=== PATIENT | male | born 1985 | race Caucasian/White ===

== ENCOUNTER 2018-01-13 07:47 | Emergency (ER) | payer OTHER | END 2018-01-13 10:15 | disposition home or self-care (01) | LOC: M ED 07:47 | DX: J20.8 Acute bronchitis due to other specified organisms (principal); F33.9 Major depressive disorder, recurrent, unspecified; Z79.899 Other long term (current) drug therapy | CPT/HCPCS: 71046 ==

== ENCOUNTER 2018-03-25 11:00 | Day surgery (SDC) | payer OTHER ==
[2018-03-25] MEDS: LR 1,000 ML IV (11:41)
[2018-03-25] MEDS ORDERED: PROPOFOL 200 MG/20 ML VIAL As Ordered ×5 (12:22→14:00)
[2018-03-25] MEDS ORDERED: fentaNYL 100 MCG/2 ML INJECTION (J3010) As Ordered (12:22)
[2018-03-25] MEDS ORDERED: MIDAZOLAM INJ 2 MG/2 ML VIAL (J2250) As Ordered (12:22)
[2018-03-25] MEDS: ceFAZolin 2 GM/D5W 50 ML IV BAG (J0690 PER 500MG) As Ordered (13:26)
[2018-03-25] MEDS: BUPIVACAINE HCL 0.5% 30 ML VIAL As Ordered (13:30)
[2018-03-25] MEDS: LIDOCAINE 1% SDV INJ 30 ML VIAL As Ordered (13:44)
[2018-03-25] MEDS: dexameTHASONE 4 MG/ML 1ML VIAL (J1100) As Ordered (14:00)
== END 2018-03-25 15:40 | disposition home or self-care (01) ==
LOC: M SDC 11:00
DX: M21.611 Bunion of right foot (principal); F32.9 Major depressive disorder, single episode, unspecified; Z79.899 Other long term (current) drug therapy; E66.9 Obesity, unspecified
CPT/HCPCS: 28296

== ENCOUNTER 2018-04-07 13:45 | Emergency (ER) | payer OTHER ==
[2018-04-07] MEDS: LIDOCAINE 1% MDV 20ML VIAL SQ (14:15)
== END 2018-04-07 15:22 | disposition home or self-care (01) ==
LOC: M ED 13:45
DX: S61.215A Laceration without foreign body of left ring finger without damage to nail, initial encounter (principal); W25.XXXA Contact with sharp glass, initial encounter; Y92.098 Other place in other non-institutional residence as the place of occurrence of the external cause; F32.9 Major depressive disorder, single episode, unspecified; Z79.899 Other long term (current) drug therapy
CPT/HCPCS: 73140

== ENCOUNTER 2019-01-27 08:27 | Day surgery (SDC) | payer OTHER ==
[~2019-01-27] VITALS: Ht 180.3 cm; Wt 112.9 kg
[~2019-01-27 08:27] MED LIST: HYDR-3713 PO; LR 1,000 ML IV ONE; MUCI600T37 PO; PAXI30TA11 PO; PAXI40TA10 PO; TESS100C PO; TUSS1CAP5 PO
[2019-01-27] MEDS ORDERED: ONDANSETRON 4MG/2ML VIAL (J2405) As Ordered ONE (09:13)
[2019-01-27] MEDS ORDERED: LIDOCAINE 2% INJ 100 MG/5 ML SDV (FOR ANES.) As Ordered ONE (09:13)
[2019-01-27] MEDS ORDERED: PROPOFOL 200 MG/20 ML VIAL As Ordered ONE ×2 (09:13→10:56)
[2019-01-27] MEDS ORDERED: MIDAZOLAM INJ 2 MG/2 ML VIAL (J2250) As Ordered ONE (09:13)
[2019-01-27] MEDS ORDERED: fentaNYL 100 MCG/2 ML INJECTION (J3010) As Ordered ONE (09:14)
[2019-01-27] MEDS ORDERED: BUPIVACAINE HCL 0.5% 30 ML VIAL As Ordered ONE (10:24)
[2019-01-27] MEDS ORDERED: LIDOCAINE 1% MDV 20ML VIAL As Ordered ONE (10:24)
[2019-01-27] MEDS ORDERED: dexameTHASONE 4 MG/ML 1ML VIAL (J1100) As Ordered ONE ×2 (10:24→11:01)
[2019-01-27] MEDS ORDERED: ACETAMINOPHEN 1000MG 100ML IV BTL (OFIRMEV) (J0131 PER 10MG) As Ordered ONE (10:59)
[2019-01-27] MEDS ORDERED: KETOROLAC 60 MG/2 ML VIAL (J1885) As Ordered ONE (11:02)
[2019-01-27 11:45] VITALS: BP 135/65
[2019-01-27] MEDS ORDERED: LR 1,000 ML IV SCH (12:00)
[2019-01-27] MEDS ORDERED: fentaNYL 100 MCG/2 ML INJECTION (J3010) IV PRN (12:00)
[2019-01-27] MEDS ORDERED: ONDANSETRON 4MG/2ML VIAL (J2405) IV PRN (12:00)
[2019-01-27] MEDS ORDERED: PERCOCET 5MG/325MG TAB PO PRN (12:00)
--- NOTE | 2019-01-28 09:11 | RO ---
DATE OF PROCEDURE: 01/27/2019 PREPROCEDURE DIAGNOSIS: Painful hardware right foot with exostosis. POSTPROCEDURE DIAGNOSIS: Painful hardware right foot with exostosis. PROCEDURE: Right foot screw removal and exostectomy. SURGEON: Dr. Anupam Alexis OPERATIONS BUSINESS PARTNER: None. ANESTHESIA: Monitored anesthesia care. Preoperative injection of 15 mL of 1:1 mixture of 1% lidocaine plain and 1/2% Marcaine plain. ESTIMATED BLOOD LOSS: Minimal. MATERIALS: #3-0 and #4-0 Vicryl, #4-0 nylon. INJECTABLES: 1 mL of Decadron, 4 mg/mL. COMPLICATIONS: None. CONDITION: Stable. Timmy Santiago is a 33-year-old male who presents to [facility] with a painful screw in his right foot. He presents today for surgical correction. The patient site and side were identified and marked in preoperative holding area. Consent was reviewed and obtained. The risks, complications and alternatives to the procedure were explained to the patient in detail. Questions were answered. DESCRIPTION OF PROCEDURE: The patient was brought to the operating room and placed on the operating room in supine position. Monitored anesthesia care was delivered by the anesthesia department. Preoperative injection of 15 mL of 1:1 mixture of 1% lidocaine plain and 0.25% Marcaine plain were injected to the right foot. The right foot was prepped and draped in normal sterile fashion. A tourniquet was applied to the right ankle and inflated at 225 mmHg. A dorsal incision was made over the previous scar and carried through with #15 blade. Scar tissue was encountered and this was linearly incised until the bone was observed. The screw was found in the bone. Overlying bone and soft tissue was removed surrounding the screw and the screw was removed using the Arthrex 3.5 screwdriver. Exostosis was noted at the medial metatarsal head. This was removed with an osteotome and smoothed with a rasp. The site was irrigated with normal saline. Deep closure was performed with #3-0 Vicryl, subcutaneous closure with #4-0 Vicryl and skin closure with #4-0 nylon. 1 mL of Decadron was injected. Sterile dressings were applied. The tourniquet was deflated. The patient was brought to the postanesthesia care unit (PACU) with vital signs stable and neurovascular status intact. He will be weight bearing as tolerated in a postoperative shoe and will followup in the office in 2 days.
== END 2019-01-27 11:55 | disposition home or self-care (01) ==
LOC: M SDC 08:27
PROVIDERS: ATTEND Podiatrist Foot & Ankle Surgery
DX: T84.84XA Pain due to internal orthopedic prosthetic devices, implants and grafts, initial encounter (principal); M89.8X7 Other specified disorders of bone, ankle and foot; F17.220 Nicotine dependence, chewing tobacco, uncomplicated; Z79.899 Other long term (current) drug therapy; Y79.2 Prosthetic and other implants, materials and accessory orthopedic devices associated with adverse incidents; Y84.8 Other medical procedures as the cause of abnormal reaction of the patient, or of later complication, without mention of misadventure at the time of the procedure
CPT/HCPCS: 20680; 28122; J0131; J0690; J1100; J1885; J2250; J2405; J3010

== ENCOUNTER 2019-07-12 10:25 | Emergency (ER) | payer OTHER ==
[~2019-07-12] VITALS: Ht 180.3 cm; Wt 112.8 kg
[~2019-07-12 10:25] MED LIST changes: -LR 1,000 ML IV ONE
[2019-07-12] MEDS ORDERED: NAPR-885 (10:31)
--- NOTE | 2019-07-12 11:28 | REP ---
RIGHT HAND SERIES, FOUR VIEW: Four views right hand performed. There is mildly displaced oblique fracture of the shaft of the fourth metacarpal. I see no other evidence of acute fracture or dislocation. There is mild cortical undulation of the first distal phalanx which appears to represent an old healed fracture. IMPRESSION: Mildly displaced fracture shaft of fourth metacarpal. Electronically Signed by Bebeto Boyce MD 07/12/2019 01:34 P
[2019-07-12 11:49] VITALS: BP 141/79
== END 2019-07-12 11:50 | disposition home or self-care (01) ==
LOC: M ED 10:25
DX: S62.324A Displaced fracture of shaft of fourth metacarpal bone, right hand, initial encounter for closed fracture (principal); X58.XXXA Exposure to other specified factors, initial encounter; Y92.9 Unspecified place or not applicable; Y93.89 Activity, other specified; Y99.9 Unspecified external cause status; Z79.899 Other long term (current) drug therapy

== ENCOUNTER 2019-12-22 08:20 | Emergency (ER) | payer OTHER ==
[~2019-12-22 08:20] MED LIST changes: +NAPR-885
== END 2019-12-22 10:50 | disposition left against medical advice (07) ==
LOC: M ED 08:20
DX: Z53.21 Procedure and treatment not carried out due to patient leaving prior to being seen by health care provider (principal)

== ENCOUNTER 2020-06-08 09:20 | Emergency (ER) | payer OTHER ==
[~2020-06-08] VITALS: Ht 180.3 cm; Wt 114.5 kg
[2020-06-08 09:20] VITALS: BP 177/91
--- OUTSIDE RECORDS SUMMARY | 2020-06-08 09:26 | CCD ---
Continuity of Care Document (CCD) Created on: 05/31/2020 Jack Timmy External Reference #: [id number] : 1985 Sex: Male Author Author Timmy ALEXIS DPM Organization Unknown Address [address] [place] [address], [address] [place] [address] Phone [phone] Care Team Providers Care Animal Caretaker Name Role Phone Johnsonsandra Parker, [facility] [phone] Problems Active Problems Provider Date Swelling of first metatarsal joint of hallux of right foot Linh Alexis DPM Onset: 03/20/2018 Swelling of first metatarsal joint of hallux of left foot Brittany Alexis DPM Onset: 03/20/2018 Other synovitis and tenosynovitis, right ankle and foot Andr fernando Alexis DPM Onset: 01/10/2020 Pain in limb Anupam Alexis DPM Onset: 01/10/2020 Social History Type Date Description Comments Sex Unknown ETOH Use Occasionally consumes alcohol Tobacco Use Start: Unknown Patient has never smoked Allergies, Adverse Reactions, Alerts Description No Known Drug Allergies Medications Active Medications SIG Qnty Indications Ordering Provide r Date Naproxen 500mg Tablets 1 tab twice daily with food 60tabs Anupam Alexis DPM 01/04/2020 Prednisone 10mg Tablets prednisone taper: take 4 tabs for 5 days, 3 tabs for days 6 and 7, 2 tabs for days 8 and 9, and 1 tab days 10 and 11 32tabs Anupam Alexis DPM 10/15/19 19 Mederma Gel apply to scars d aily 20gm Anupam Alexis DPM 08/07/2018 Medrol 4mg Tablets medrol dina: take as directed 21tabs Anupam Alexis DPM 06/02/2018 Bactrim DS 800-160mg Tablets 1 tab by mouth twice daily 20tabs Anupam Alexis DPM 8 Hydrocodone-Acetaminophen 5-325mg Tablets 1-2 tablets by mouth every 6 hours as needed pain 20tabs Anupam Alexis DPM 03/23/2018 Paroxetine HCL 30mg Tablets Unknown Proair HFA 108(90Base) mcg/Act Aerosol Unknown Mucinex 600mg Tablets ER 12HR Take One Tablet By Mouth Twice A Day Unknown Celecoxib 100mg Capsules Unknown Tizanidine HCL 4mg Tablets Unknown Immunizations Description No Information Available Vital Signs Date Vital Result Comment 01/04/2020 8:15am Height 71 inches 5'11" Weight 240.00 lb BP Systolic 150 mmHg BP Diastolic 102 mmHg Heart Rate 70 /min BMI (Body Mass Index) 33.5 kg/m2 12/25/2018 9:18am Height 71 inches 5'11" Weight 218.00 lb BP Systolic 144 mmHg BP Diastolic 100 mmHg Heart Rate 73 /min BMI (Body Mass Index) 30.4 kg/m2 Results Description No Information Available Procedures Date Code Description Status 05/18/2020 51652 X-Ray Foot Complete Completed 01/04/2020 48875 X-Ray Foot Complete Completed 01/04/2020 09398 Strapping Foot Or Ankle Complete d Medical Devices Description No Information Available Encounters Type Date Location Provider Dx Diagnosis Office Visit 05/18/2020 10:30a [facility] Anupam Alexis DPM M79.2 Neuralgia and neuritis, unspecified M65.871 Other synovitis and tenosyno vitis, right ankle and foot Office Visit 01/04/2020 8:15a [facility] Anupam Alexis DPM M65.871 Other synovitis and tenosynovitis, right ankle and foot M79.671 Pain in right foot Assessments Date Code Description Provider 05/18/2020 M79.2 Neuralgia and neuritis, unspecif ied Anupam Alexis DPM 05/18/2020 M65.871 Other synovitis and tenosynoviti s, right ankle and foot Anupam Alexis DPM 01/04/2020 M65.871 Other synovitis and tenosynoviti s, right ankle and foot Anupam Alexis DPM 01/04/2020 M79.671 Pain in right foot Anupam fuentes DPM Plan of Treatment Future Appointment(s):* 06/19/2020 9:30 am - Anupam Alexis DPM at [facility] Functional Status Description No Information Available Mental Status Description No Information Available Referrals Refer to Dr Reason for Referral Status Appt Date Anupam Alexis DPM Created [address] [address] [phone]
--- OUTSIDE RECORDS SUMMARY | 2020-06-08 09:26 | CCD ---
Author Author [facility] Organization [facility] Address Unknown Phone Unavailable Care Team Providers Care Groover Operator Name Role Phone Iliana HAZEL DPM Unavailable Unavailable Iliana HAZEL DPM Unavailable Unavailable Iliana HAZEL DPM Unavailable Unavailable Iliana HAZEL DPM Unavailable Unavailable Iliana HAZEL DPM Unavailable Unavailable Iliana HAZEL DPM Unavailable Unavailable Iliana HAZEL DPM Unavailable Unavailable Iliana HAZEL DPM Unavailable Unavailable Iliana HAZEL DPM Unavailable Unavailable Iliana HAZEL DPM Unavailable Unavailable Iliana HAZEL DPM Unavailable Unavailable Iliana HAZEL DPM Unavailable Unavailable Iliana HAZEL DPM Unavailable Unavailable Iliana HAZEL DPM Unavailable Unavailable Iliana HAZEL DPM Unavailable Unavailable Iliana HAZEL DPM Unavailable Unavailable Iliana HAZEL DPM Unavailable Unavailable Iliana HAZEL DPM Unavailable Unavailable Iliana HAZEL DPM Unavailable Unavailable Iliana HAZEL DPM Unavailable Unavailable MAJAK, Iliana MCKINLEY DPM Unavailable Unavailable MAJAK, R ARLEN DPM Unavailable Unavailable MAJAK, R ARLEN DPM Unavailable Unavailable MAJAK, R ARLEN DPM Unavailable Unavailable MAJAK, R ARLEN DPM Unavailable Unavailable MAJAK, R ARLEN DPM Unavailable Unavailable MAJAK, R ARLEN DPM Unavailable Unavailable MAJAK, R ARLEN DPM Unavailable Unavailable MAJAK, R ARLEN DPM Unavailable Unavailable MAJAK, Iliana MCKINLEY DPM Unavailable Unavailable Fish, [facility], PA-C Unavailable Unavailabl e Fish, [facility], PA-C Unavailable Unavailabl e Fish, [facility], PA-C Unavailable Unavailabl e Fish, [facility], PA-C Unavailable Unavailabl e Fish, [facility], PA-C Unavailable Unavailabl e Fish, [facility], PA-C Unavailable Unavailabl e Fish, [facility], PA-C Unavailable Unavailabl e Fish, [facility], PA-C Unavailable Unavailabl e Fish, [facility], PA-C Unavailable Unavailabl e Fish, [facility], PA-C Unavailable Unavailabl e Fish, [facility], PA-C Unavailable Unavailabl e Fish, [facility], PA-C Unavailable Unavailabl e Fish, [facility], PA-C Unavailable Unavailabl e Fish, [facility], PA-C Unavailable Unavailabl e Fish, [facility], PA-C Unavailable Unavailabl e Fish, [facility], PA-C Unavailable Unavailabl e Fish, [facility], PA-C Unavailable Unavailabl e Fish, [facility], PA-C Unavailable Unavailabl e Fish, [facility], PA-C Unavailable Unavailabl e Fish, [facility], PA-C Unavailable Unavailabl e Fish, [facility], PA-C Unavailable Unavailabl e Fish, [facility], PA-C Unavailable Unavailabl e Fish, [facility], PA-C Unavailable Unavailabl e Fish, [facility], PA-C Unavailable Unavailabl e Fish, [facility], PA-C Unavailable Unavailabl e Fish, [facility], [facility]-C Unavailable Unavailabl e FishShirley MPAS, PA-C Unavailable Unavailabl e FishShirley MPAS, PA-C Unavailable Unavailabl e FishShirley MPAS, PA-C Unavailable Unavailabl e FishShirley MPAS, PA-C Unavailable Unavailabl e FishShirley MPAS, PA-C Unavailable Unavailabl e FishShirley MPAS, PA-C Unavailable Unavailabl e FishShirley MPAS, PA-C Unavailable Unavailabl e DRAZEK, I ZINA PA Unavailable Unavailable DRAZEK, I ZINA PA Unavailable Unavailable DRAZEK, I ZINA PA Unavailable Unavailable DRAZEK, I ZINA PA Unavailable Unavailable DRAZEK, I ZINA PA Unavailable Unavailable DRAZEK, I ZINA PA Unavailable Unavailable DRAZEK, I ZINA PA Unavailable Unavailable DRAZEK, I ZINA PA Unavailable Unavailable DRAZEK, I ZINA PA Unavailable Unavailable DRAZEK, I ZINA PA Unavailable Unavailable DRAZEK, I ZINA PA Unavailable Unavailable DRAZEK, I ZINA PA Unavailable Unavailable DRAZEK, I ZINA PA Unavailable Unavailable DRAZEK, I ZINA PA Unavailable Unavailable DRAZEK, I ZINA PA Unavailable Unavailable DRAZEK, I ZINA PA Unavailable Unavailable DRAZEK, I ZINA PA Unavailable Unavailable DRAZEK, I ZINA PA Unavailable Unavailable DRAZEK, I ZINA PA Unavailable Unavailable DRAZEK, I ZINA PA Unavailable Unavailable DRAZEK, I ZINA PA Unavailable Unavailable DRAZEK, I ZINA PA Unavailable Unavailable DRAZEK, I ZINA PA Unavailable Unavailable DRAZEK, I ZINA PA Unavailable Unavailable DRAZEK, I ZINA PA Unavailable Unavailable DRAZEK, I ZINA PA Unavailable Unavailable DRAZEK, I ZINA PA Unavailable Unavailable DRAZEK, I ZINA PA Unavailable Unavailable DRAZEK, I ZINA PA Unavailable Unavailable DRAZEK, I ZINA PA Unavailable Unavailable Re-disclosure Warning The records that you are about to access may contain information from federally-assisted alcohol or drug abuse programs. If such information is present, then the following federally mandated warning applies: This information has been disclosed to you from records protected by federal confidentiality rules (42 CFR part 2). The federal rules prohibit you from making any further disclosure of this information unless further disclosure is expressly permitted by the written consent of the person to whom it pertains or as otherwise permitted by 42 CFR part 2. A general authorization for the release of medical or other information is NOT sufficient for this purpose. The Federal rules restrict any use of the information to criminally investigate or prosecute any alcohol or drug abuse patient.The records that you are about to access may contain highly sensitive health information, the redisclosure of which is protected by Article 27-F of the [facility] Public Health law. If you continue you may have access to information: Regarding HIV / AIDS; Provided by facilities licensed or operated by the [facility] Office of Mental Health; or Provided by the [facility] Office for People With Developmental Disabilities. If such information is present, then the following [facility] mandated warning applies: This information has been disclosed to you from confidential records which are protected by state law. State law prohibits you from making any further disclosure of this information without the specific written consent of the person to whom it pertains, or as otherwise permitted by law. Any unauthorized further disclosure in violation of state law may result in a fine or penitentiary sentence or both. A general authorization for the release of medical or other information is NOT sufficient authorization for further disc losure. Family History Family Member Name Family Member Gender Family Member Status Date o f Status Description Data Source(s) Unknown Male Problem [facility] ([facility] Encounters Encounter Providers Location Date Indications Data Source(s ) Outpatient Attender: ARLEN HAZEL [facility] 11/2020 09:30:00 AM EST [facility] ([facility] Outpatient Attender: ARLEN HAZEL [facility] 12/11 08:15:00 AM EDT [facility] ([facility] Outpatient Attender: MARIXA [facility] Physical Therapy 07/15/2019 12:15:00 PM EST [facility] ([facility]) Outpatient 07/15/2019 11:51:[address] [facility] OFFICE OUTPATIENT NEW 30 MINUTES Attender: ZINA ANDRADE Physic al Therapy 07/12/2019 12:30:00 PM EST [facility] ([facility] Medications Medication Brand Name Start Date Product Form Dose Route Admi nistrative Instructions Pharmacy Instructions Status Indications Reaction Description Data Source(s) Naproxen 500 MG Oral Tablet Naproxen 01/04/2020 12:00:00 AM EDT active [facility] 500 mg 01/04/2020 12:00:00 AM EDT tablet 60 TAKE ONE TABLET BY MOUTH TWICE A DAY WITH FOOD TAKE ONE TABLET BY MOUTH TWICE A DAY WITH FOOD SOLD: 01/04/2020 [facility] Insurance Providers Payer name Policy type / Coverage type Policy ID Covered democrat ID Covered democrat's relationship to holly Policy Holly Plan Information [place] [employer]Y [id number] SP [id number] [employer] [place] O [id number] S [id number] [place] HUMANA - O/P [id number] 18 [id number] [place] 2018 Commercial [id number] Self 0 [id number] [place] 2018 Commercial [id number] Self 0 [id number] East 2018 Commercial [id number] Self 0 [id number] East 2018 Commercial [id number] Self [id number] East 2018 Commercial [id number] Self 0 [id number] East 2018 Commercial [id number] Self 0 [id number] East 2018 Commercial [id number] Self 0 [id number] East 2018 Commercial [id number] Self [id number] East 2017 Commercial [id number] Self 0 [id number] [place] 2017 Commercial [id number] Self 0 [id number] East 2018 Commercial [id number] Self [id number] EAST [employer] [facility] [id number] SP [id number] ACTIVE DUTY [id number] SP [id number] Problems, Conditions, and Diagnoses Code Display Name Description Problem Type Effective Dates Data Source(s) 28306240 Pain in limb Pain in limb Problem 01/10/2020 12:00:00 A M EDT [facility] ([facility] Other synovitis and tenosynovitis, right ankle and foot Other synovitis and tenosynovitis, right ankle and foot Problem 01/10/2020 12:00:00 AM E DT [facility] ([facility] Surgeries/Procedures Procedure Description Date Indications Data Source(s) RADEX FOOT COMPLETE MINIMUM 3 VIEWS 05/18/2020 12:00:0 0 AM EST [facility] ([facility] Strapping Foot Or Ankle 01/04/2020 12:00:00 AM EDT [facility] ([facility] RADEX FOOT COMPLETE MINIMUM 3 VIEWS 01/04/2020 12:00:0 0 AM EDT [facility] ([facility] RADEX WRIST COMPLETE MINIMUM 3 VIEWS 09/27/2019 12:00: 00 AM EDT [facility] ([facility] RADEX HAND MINIMUM 3 VIEWS 09/27/2019 12:00:00 AM EDT [facility] ([facility] RADEX HAND MINIMUM 3 VIEWS 08/11/2019 12:00:00 AM EDT [facility] ([facility] Apply Splint Short Arm Static 07/28/2019 12:00:00 AM E DT [facility] ([facility] RADEX HAND MINIMUM 3 VIEWS 07/28/2019 12:00:00 AM EDT [facility] ([facility] APPLICATION CAST ELBOW FINGER SHORT ARM 07/15/2019 12: 00:00 AM EST [facility] ([facility] ) CLTX METACARPAL FX W/O MANIPULATION EACH BONE 07/12/19 20 12:00:00 AM EST [facility] ([facility] ) Vital Signs ID Date Data Source UNK Name Value Range Interpretation Code Description Data Source(s) Body mass index (BMI) [Ratio] 33.5 kg/m2 33.5 k g/m2 [facility] Heart rate 70 /min 70 /min [facility] ([facility] Diastolic blood pressure 102 mm[Hg] 102 mm[Hg] [facility] Systolic blood pressure 150 mm[Hg] 150 mm[Hg] M EDVENU ([facility] Body weight 240.00 [lb_av] 240.00 [lb_av] [facility] T ([facility] Body height 71 [in_i] 71 [in_i] [facility] 5'11" Body mass index (BMI) [Ratio] 34.6 kg/m2 34.6 k g/m2 [facility] ([facility] Body weight 241.50 [lb_av] 241.50 [lb_av] [facility] T ([facility] Body height 70 [in_i] 70 [in_i] [facility] ([facility]) 5'10" Body temperature 98.5 [degF] 98.5 [degF] [facility] ([facility])
[2020-06-08] MEDS ORDERED: ZOLP10TA2 (09:30)
[2020-06-08] MEDS ORDERED: FLUO20CA22 (09:30)
[2020-06-08] MEDS ORDERED: PRAZ1CAP (09:30)
[2020-06-08] MEDS ORDERED: TRAZ-257 (09:30)
--- OUTSIDE RECORDS SUMMARY | 2020-06-08 09:53 | CCD ---
Author Author [facility] Organization [facility] Address Unknown Phone Unavailable Care Team Providers Care Retort Firer Name Role Phone Iliana HAZEL DPM Unavailable [...] MAJAK, Iliana MCKINLEY DPM Unavailable Unavailable Fish, [facility], PA-C Unavailable Unavailabl e Fish, [facility], PA-C Unavailable Unavailabl e Fish, [facility], PA-C Unavailable Unavailabl e Fish, [facility], PA-C Unavailable Unavailabl e Fish, [facility], PA-C Unavailable Unavailabl e Fish, [facility], PA-C Unavailable Unavailabl e Fish, [facility], PA-C Unavailable Unavailabl e Fish, [facility], PA-C Unavailable Unavailabl e Fish, [facility], PA-C Unavailable Unavailabl e Fish, [facility], PA-C Unavailable Unavailabl e Fish, [facility], PA-C Unavailable Unavailabl e Fish, [facility], PA-C Unavailable Unavailabl e Fish, [facility], PA-C Unavailable Unavailabl e Fish, [facility], PA-C Unavailable Unavailabl e Fish, [facility], PA-C Unavailable Unavailabl e Fish, [facility], PA-C Unavailable Unavailabl e Fish, [facility], PA-C Unavailable Unavailabl e Fish, [facility], PA-C Unavailable Unavailabl e Fish, [facility], PA-C Unavailable Unavailabl e Fish, [facility], PA-C Unavailable Unavailabl e Fish, [facility], PA-C Unavailable Unavailabl e Fish, [facility], PA-C Unavailable Unavailabl e Fish, [facility], PA-C Unavailable Unavailabl e Fish, [facility], PA-C Unavailable Unavailabl e Fish, [facility], PA-C Unavailable Unavailabl e Fish, [facility], PA-C Unavailable Unavailabl e FishShirley [...] is protected by Article 27-F of the [facility] Public Health law. If you continue you may have access to information: Regarding HIV / AIDS; Provided by facilities licensed or operated by the [facility] Office of Mental Health; or Provided by the [facility] Office for People With Developmental Disabilities. If such information is present, then the following [facility] mandated warning applies: This information has been [...] law may result in a fine or prison sentence or both. A general authorization for the release of medical or other information is NOT sufficient authorization for further disc losure. Family History Family Member Name Family Member Gender Family Member Status Date o f Status Description Data Source(s) Unknown Male Problem [facility] ([facility] Encounters Encounter Providers Location Date Indications Data Source(s ) Outpatient Attender: ARLEN HAZEL [facility] Office 11/2020 09:30:00 AM EST [facility] ([facility] Outpatient Attender: ARLEN HAZEL [facility] Office 12/11 08:15:00 AM EDT [facility] ([facility] Outpatient Attender: MARIXA [facility] Physical Therapy 07/15/2019 12:15:00 PM EST [facility] ([facility]) Outpatient 07/15/2019 11:51:00 AM EST [facility] OFFICE OUTPATIENT NEW 30 MINUTES Attender: ZINA ANDRADE Physic al Therapy 07/12/2019 12:30:00 PM EST [facility] ([facility] ) Medications Medication Brand Name [...] TWICE A DAY WITH FOOD SOLD: 01/04/2020 [facility] Insurance Providers Payer name Policy type / Coverage type Policy ID Covered constitution party ID Covered constitution party's relationship to holly Policy Holly Plan Information [employer] [id number] SP [id number] HU[employer] O [id number] S [id number] EAST [employer]MANA - O/P [id number] 18 [id number] [address] [id number] Commercial [id number] Self [id number] East 2018 Commercial [id number] Self [id number] East 2018 Commercial [id number] Self [id number] East 2018 Commercial [id number] Self [id number] East 2018 Commercial [id number] Self [id number] East 2018 Commercial [id number] Self [id number] East 2018 Commercial [id number] Self 0 [id number] East 2018 Commercial [id number] Self [id number] East 2017 Commercial [id number] Self [id number] East 2017 Commercial [id number] Self 0 [id number] East 2018 Commercial [id number] Self [id number] EAST HUMANA [facility] [id number] SP [id number] ACTIVE DUTY [id number] SP [id number] Problems, Conditions, and Diagnoses Code Display Name Description Problem Type Effective Dates Data Source(s) 91667510 Pain in limb Pain in limb Problem [...] VIEWS 09/27/2019 12:00: 00 AM EDT [facility] ([facility] ) RADEX HAND MINIMUM 3 VIEWS 09/27/2019 12:00:00 AM EDT [facility] ([facility] ) RADEX HAND MINIMUM 3 VIEWS 08/11/2019 12:00:00 AM EDT [facility] ([facility] ) Apply Splint Short Arm Static 07/28/2019 12:00:00 AM E DT [facility] ([facility] ) RADEX HAND MINIMUM 3 VIEWS 07/28/2019 12:00:00 AM EDT [facility] ([facility] ) APPLICATION CAST ELBOW FINGER SHORT ARM 07/15/2019 12: 00:00 AM EST [facility] ([facility] ) CLTX METACARPAL FX W/O MANIPULATION EACH BONE 07/12/19 20 12:00:00 AM EST [facility] ([facility] ) Vital Signs ID Date Data [...] [Ratio] 34.6 kg/m2 34.6 k g/m2 [facility] ([facility] Body weight 241.50 [lb_av] 241.50 [lb_av] [facility] T ([facility] ) Body height 70 [in_i] 70 [in_i] [facility] ([facility]) 5'10" Body temperature 98.5 [degF] 98.5 [degF] [facility] ([facility])
--- NOTE | 2020-06-08 09:56 | REP ---
INDICATION: trauma COMPARISON: None. TECHNIQUE: AP, lateral, bilateral oblique views right hand. FINDINGS: No obvious acute fracture or dislocation. No subcutaneous emphysema or foreign body. Irregularity to the 5th proximal phalanx suggests old injury. IMPRESSION: No obvious acute fracture or dislocation.. <Electronically signed by Yamil Lopez > 06/08/20 0952
== END 2020-06-08 10:12 | disposition home or self-care (01) ==
LOC: M ED 09:20
DX: S60.221A Contusion of right hand, initial encounter (principal); W23.0XXA Caught, crushed, jammed, or pinched between moving objects, initial encounter; Y92.512 Supermarket, store or market as the place of occurrence of the external cause; Y93.9 Activity, unspecified; Y99.9 Unspecified external cause status; F41.9 Anxiety disorder, unspecified; F32.9 Major depressive disorder, single episode, unspecified; F43.10 Post-traumatic stress disorder, unspecified

== ENCOUNTER 2020-11-22 08:38 | Emergency (ER) | payer OTHER ==
[~2020-11-22] VITALS: Ht 182.9 cm; Wt 120.0 kg
[~2020-11-22 08:38] MED LIST changes: +FLUO20CA22; +PRAZ1CAP; +TRAZ-257; +ZOLP10TA2
[2020-11-22] MEDS ORDERED: DIVA500T9 PO (08:49)
[2020-11-22] MEDS ORDERED: DIVA250T7 PO (08:49)
[2020-11-22] MEDS ORDERED: PARO10TA3 PO (08:49)
--- NOTE | 2020-11-22 09:18 | REP ---
INDICATION: chest pain. COMPARISON: 01/13/2018 TECHNIQUE: PA and lateral FINDINGS: The superior mediastinal structures are midline. The cardiac silhouette is unremarkable in size, shape, and position. The diaphragmatic surfaces of the lungs are regular, and the costophrenic angles are clear. The pulmonary mccann are clear. The imaged osseous structures are intact. IMPRESSION: There is no acute cardiopulmonary disease. <Electronically signed by Joe Ledezma > 11/22/20 0914
--- NOTE | 2020-11-22 09:19 | REP ---
INDICATION: L shoulder pain COMPARISON: None. TECHNIQUE: Internal rotation, external rotation, and Y view. FINDINGS: No acute fracture or dislocation. The acromioclavicular and glenohumeral joints are intact. No periarticular calcifications or degenerative changes are appreciated. Sub acromial space is normal. Surrounding soft tissues are unremarkable. IMPRESSION: Normal age-appropriate left shoulder radiographs. <Electronically signed by Yamil Lopez > 11/22/20 0903
[2020-11-22 09:28] LABS: BASO % 0.5 % (0.0-1.0); EOS # 0.1 10^3/uL (0.0-0.5); EOS % 1.8 % (0.0-3.0); HEMATOCRIT 46.7 % (42.0-52.0); HEMOGLOBIN 15.9 g/dl (13.5-17.5); LYMPH # 2.4 10^3/uL (1.5-5.0); LYMPH % 38.4 % (24.0-44.0); MEAN CORPUSCULAR HEMOGLOBIN 32.2 pg (27.0-33.0); MEAN CORPUSCULAR VOLUME 94.5 fl (80.0-96.0); MONO # 0.6 10^3/uL (0.0-0.8); MONO % 9.6 % (2.0-8.0); NEUTROPHILS % 49.4 % (36.0-66.0); PLATELET COUNT, AUTOMATED 206 10^3/uL (150-450); RED BLOOD COUNT 4.94 10^6/uL (4.30-6.10); WHITE BLOOD COUNT 6.1 10^3/uL (4.0-10.0)
[2020-11-22] MEDS ORDERED: CARVedilol 12.5 MG TAB PO ONE ×2 (09:40→11:05)
--- NOTE | 2020-11-22 10:02 | REP ---
INDICATION: hypertension headache. COMPARISON: None. TECHNIQUE: Helical scanning is acquired. 5 mm axial images were reformatted. Coronal MPR images were generated. FINDINGS: Bone window settings demonstrate an intact bony calvarium. There is no evidence of skull fracture or incidental bony calvarial lesion. The visualized paranasal sinuses appear clear. No intraorbital abnormality is seen. On soft tissue window setting images; the lateral, third, and fourth ventricles are normal in size and position. Boyce-white differentiation pattern is normal above and below the tentorium. There are is no evidence of intracranial hemorrhage. No mass, edema, infarction, or midline shift is seen. No extra-axial fluid collection is appreciated. IMPRESSION: Negative noncontrast head CT. <Electronically signed by Thuan Mcneil > 11/22/20 [id number]
[2020-11-22 10:03] LABS: ALBUMIN 3.9 GM/DL (3.2-5.2); ALT/SGPT 142 U/L (12-78); BILIRUBIN,DIRECT 0.1 MG/DL (0.0-0.2); BILIRUBIN,TOTAL 0.5 MG/DL (0.2-1.0); BLOOD UREA NITROGEN 15 MG/DL (7-18); CALCIUM LEVEL 9.5 MG/DL (8.5-10.1); CARBON DIOXIDE LEVEL 26 MEQ/L (21-32); CHLORIDE LEVEL 104 MEQ/L (98-107); CK-MB VALUE MASS 4.2 NG/ML (<3.6); CPK CREATINE PHOSPHOKINASE 391 U/L (39-308); CREATININE FOR GFR 1.02 MG/DL (0.70-1.30); GLOMERULAR FILTRATION RATE > 60.0 (>60); GLUCOSE, FASTING 104 MG/DL (70-100); LIPASE 107 U/L (73-393); MB/CK RELATIVE INDEX 1.07 (< OR =4); POTASSIUM SERUM 4.8 MEQ/L (3.5-5.1); SODIUM LEVEL 139 MEQ/L (136-145); TOTAL PROTEIN 7.6 GM/DL (6.4-8.2); TROPONIN I < 0.02 NG/ML (< 0.10)
[2020-11-22] MEDS ORDERED: ACETAMINOPHEN TAB 650MG DOSE (2X325MG) PO ONE (11:05)
[2020-11-22 11:20] VITALS: BP 154/100
[2020-11-22 12:20] VITALS: BP 140/100
[2020-11-22] MEDS ORDERED: CARV25TA PO (12:23)
[2020-11-22] MEDS ORDERED: LISI20TA33 PO (12:24)
--- NOTE | 2020-11-22 20:48 | ECGEPIP ---
[facility] - ED Test Date: 2020-11-22 Pat Name: BUNNY CUEVA Department: Room: - Gender: Male [place] Laborer: dewayne : 1985 Requested By: CHESTER Lewis Order Number: [id number] Reading MD: Raghav Pastor Measurements Intervals [place] Rate: 72 P: 21 [place]: 148 QRS: 0 QRSD: 102 T: -8 QT: 392 QTc: 429 Interpretive Statements Normal sinus rhythm NSTTW ABNORMALITY(S) NO PRIORS FOR COMPARISON Electronically Signed on 11-22-2020 20:48:41 EDT by Raghav Pastor
== END 2020-11-22 12:35 | disposition home or self-care (01) ==
LOC: M ED 08:38
DX: I10 Essential (primary) hypertension (principal); F43.10 Post-traumatic stress disorder, unspecified; Z87.820 Personal history of traumatic brain injury; Z79.899 Other long term (current) drug therapy

== ENCOUNTER → 2021-01-31 | Outpatient (CLI) | payer OTHER ==
[~2021-01-31] MED LIST changes: +CARV25TA PO; +DIVA250T7 PO; +DIVA500T9 PO; +LISI20TA33 PO; +PARO10TA3 PO
--- NOTE | 2021-02-05 18:09 | SLEEPHOME ---
DATE: 01/31/2021 ORDERED BY: Venkat Adam MD Diagnostic home sleep testing was performed due to concern for the obstructive sleep apnea syndrome in this patient with a history of snoring. For testing, a nocturnal T3 respiratory monitoring device was used. Continuous record was made of pulse, oxygen saturation, air flow, chest and abdominal strain, and body position. Nine hours and 59 minutes of data were reviewed. There were 8 hours and 53 minutes marked as time in bed. During the interval marked time in bed, there were 125 respiratory events identified of 10 seconds in duration or greater for a respiratory event index of 14.1. The events were primarily obstructive. Baseline pulse rate was 68. Pulse rate ranged 51 to 187. Baseline saturation was 93%. Saturations fell to 79%. Testing was performed in both the supine and nonsupine positions. IMPRESSION: Abnormal home sleep testing with repetitive respiratory events and oxygen desaturations to 79% with a respiratory event index of 14.1 is consistent with the obstructive sleep apnea syndrome. RECOMMENDATION: The patient should be encouraged to undergo a formal sleep evaluation.
== END ==
LOC: M SLEEP HO 10:17
PROVIDERS: ATTEND Internal Medicine Cardiovascular Disease
DX: G47.33 Obstructive sleep apnea (adult) (pediatric) (principal)

== ENCOUNTER → 2021-03-29 | Outpatient (REF) ==
--- NOTE | 2021-03-29 09:43 | REP ---
INDICATION: ARTHRITIS COMPARISON: 11/22/2020 TECHNIQUE: PA and lateral. FINDINGS: The mediastinum and cardiac silhouette are normal. The lung mccann are clear and without acute consolidation, effusion, or pneumothorax. The skeletal structures are intact and normal. IMPRESSION: No acute cardiopulmonary process. <Electronically signed by Yamil Lopez > 03/29/21 0937
--- NOTE | 2021-03-29 09:45 | REP ---
INDICATION: ARTHRITIS COMPARISON: None. TECHNIQUE: AP, lateral, bilateral oblique views right wrist. FINDINGS: The carpal bones, surrounding osseous structures, soft tissues, and joint spaces are normal. There is no evidence for acute fracture or dislocation. No subcutaneous emphysema or radiodense foreign body. No overt arthritic changes are appreciated. IMPRESSION: Normal wrist series. No overt arthritic changes appreciated. <Electronically signed by Yamil Lopez > 03/29/21 0979
--- NOTE | 2021-03-29 09:45 | REP ---
INDICATION: ARTHRITIS COMPARISON: None. TECHNIQUE: AP, lateral, bilateral oblique views right hand. FINDINGS: The osseous structures and joint spaces are intact and normal. There is no evidence for acute fracture or dislocation. Surrounding soft tissues are unremarkable. No subcutaneous emphysema or radiodense foreign body. No overt arthritic changes are appreciated. IMPRESSION: Normal right hand radiographs. <Electronically signed by Yamil Lopez > 03/29/21 0996
--- NOTE | 2021-03-29 09:46 | REP ---
INDICATION: ARTHRITIS COMPARISON: None. TECHNIQUE: AP, lateral, bilateral oblique views right foot. FINDINGS: Degenerative changes involving the 1st toe and primarily the 1st metatarsophalangeal joint includes cortical irregularity, subchondral/periarticular sclerosis and mild joint space narrowing. Cortical irregularity and subchondral sclerosis with joint space narrowing also identified at the 1st interphalangeal joint. Remainder of the examination is essentially age-appropriate. 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 <Electronically signed by Yamil Lopez > 03/29/21 0900
== END ==
LOC: M PLAIMG 08:33
PROVIDERS: ATTEND Internal Medicine
DX: M19.071 Primary osteoarthritis, right ankle and foot (principal)

== ENCOUNTER 2021-04-18 10:26 | Emergency (ER) | payer OTHER ==
[~2021-04-18] VITALS: Ht 180.3 cm; Wt 125.5 kg
== END 2021-04-18 10:45 | disposition left against medical advice (07) ==
LOC: M ED 10:26
DX: Z53.21 Procedure and treatment not carried out due to patient leaving prior to being seen by health care provider (principal)

== ENCOUNTER 2022-07-29 21:23 | Emergency (ER) | payer OTHER ==
[~2022-07-29 21:23] MED LIST changes: -PAXI30TA11 PO; +PAXI30TA12 PO; -PAXI40TA10 PO; +PAXI40TA12 PO
[2022-07-29 22:04] LABS: HEMATOCRIT 49.1 % (42.0-52.0); HEMOGLOBIN 16.9 g/dl (13.5-17.5); MEAN CORPUSCULAR HEMOGLOBIN 33.5 pg (27.0-33.0); MEAN CORPUSCULAR HGB CONC 34.4 g/dl (32.0-36.5); MEAN CORPUSCULAR VOLUME 97.4 fl (80.0-96.0); PLATELET COUNT, AUTOMATED 344 10^3/uL (150-450); RED BLOOD COUNT 5.04 10^6/uL (4.30-6.10); WHITE BLOOD COUNT 12.9 10^3/uL (4.0-10.0)
[2022-07-29 22:28] LABS: ETHYL ALCOHOL (ETHANOL) 0.226 % (0.000-0.010)
[2022-07-29 22:29] LABS: ACETAMINOPHEN LEVEL < 2.0 UG/ML (10.0-20.0)
[2022-07-29 22:30] LABS: SALICYLATE LEVEL < 3.0 MG/DL (<30)
[2022-07-29 22:32] LABS: ALBUMIN 4.5 G/DL (3.2-5.2); ALKALINE PHOSPHATASE 82 U/L (46-116); ALT/SGPT 78 U/L (7.0-40); AST/SGOT 53 U/L (<34); BILIRUBIN,DIRECT 0.2 MG/DL (<0.4); BILIRUBIN,TOTAL 0.7 MG/DL (0.3-1.2); BLOOD UREA NITROGEN 14 MG/DL (9-23); CALCIUM LEVEL 8.7 MG/DL (8.5-10.1); CARBON DIOXIDE LEVEL 23 MMOL/L (20-31); CHLORIDE LEVEL 99 MMOL/L (98-107); CREATININE FOR GFR 0.96 MG/DL (0.70-1.30); GLOMERULAR FILTRATION RATE > 60.0 (>60); GLUCOSE, FASTING 119 MG/DL (60-100); POTASSIUM SERUM 4.3 MMOL/L (3.5-5.1); SODIUM LEVEL 133 MMOL/L (136-145); THYROID STIMULATING HORMONE 3.208 uIU/ML (0.55-4.78); TOTAL PROTEIN 7.8 G/DL (5.7-8.2)
[2022-07-29 23:19] LABS: AMPHETAMINES LEVEL URINE NEGATIVE (NEGATIVE); BARBITURATES URINE NEGATIVE (NEGATIVE); BENZODIAZEPINES URINE NEGATIVE (NEGATIVE); COCAINE METABOLITE URINE NEGATIVE (NEGATIVE); METHADONE URINE NEGATIVE (NEGATIVE); OPIATES URINE NEGATIVE (NEGATIVE); PHENCYCLIDINE URINE NEGATIVE (NEGATIVE)
[2022-07-29 23:21] LABS: CANNABINOIDS URINE POSITIVE (NEGATIVE)
[2022-07-30] MEDS ORDERED: LORazepam 2 MG TAB PO ONE
[2022-07-30 11:01] VITALS: BP 159/69
== END 2022-07-30 11:20 | disposition home or self-care (01) ==
LOC: M ED 21:23
DX: F32.9 Major depressive disorder, single episode, unspecified (principal); F10.129 Alcohol abuse with intoxication, unspecified; I10 Essential (primary) hypertension; F43.10 Post-traumatic stress disorder, unspecified; Z87.820 Personal history of traumatic brain injury; Z79.899 Other long term (current) drug therapy